=== PATIENT | female | born 1975 | race Caucasian/White ===

== ENCOUNTER 2019-08-20 09:33 | Observation (INO) ==
[2019-08-20] MEDS ORDERED: Aspirin 81 MG TAB.CHEW PO STA (09:58)
[2019-08-20 09:59] LABS: Basophils % 0.2 %; Eosinophils # 0.1 K/mcL (0.0-0.6); Eosinophils % 2.1 %; Hemoglobin 12.7 g/dL (11.5-15.4); Immature Granulocytes % 0.2 % (0-4); Lymphocytes % 23.2 %; Mean Corpuscular HGB Conc 33.4 g/dL (31.6-35.5); Mean Corpuscular Hemoglobin 31.1 pg (28.0-33.3); Mean Corpuscular Volume 92.9 fL (83.0-100.0); Mean Platelet Volume 9.3 fL (9.4-12.4); Monocytes # 0.3 K/mcL (0.0-1.3); Neutrophils # 2.9 K/mcL (1.6-8.9); Platelet Count 131 K/mcL (140-400); Red Blood Count 4.09 M/mcL (3.82-4.97); Red Cell Distribution Width 12.4 % (11.5-14.5); Segmented Neutrophils % 68.3 %; White Blood Count 4.3 K/mcL (4.3-11.1)
[2019-08-20] MEDS: Nitroglycerin 0.4 MG TAB.SUBL SL PRN ×3 (10:09→10:21)
[2019-08-20 10:21] LABS: BUN/Creatinine Ratio 33 (6-26); Blood Urea Nitrogen 20 mg/dL (6-20); Calcium 9.2 mg/dL (8.6-10.3); Carbon Dioxide 25 mEq/L (23-29); Chloride 109 mEq/L (98-107); Glucose 194 mg/dL (70-105); Osmolality,Calculated 290 (280-300); Potassium 3.8 mEq/L (3.5-5.1); Sodium 136 mEq/L (136-145); eGFR For African Americans > 60 (> 60); eGFR For Non-African Americans > 60 (> 60)
[2019-08-20 10:22] LABS: Troponin I < 0.03 ng/mL (< 0.04)
[2019-08-20 11:05] LABS: Alanine Aminotransferase 32 Units/L (7-52); Albumin 4.1 g/dL (3.5-5.7); Albumin/Globulin Ratio 1.5 (1.1-2.2); Alkaline Phosphatase 81 Units/L (34-104); Aspartate Amino Transferase 28 Units/L (13-39); Bilirubin,Direct 0.1 mg/dL (0.0-0.2); Bilirubin,Indirect 0.4 mg/dL (0.0-1.2); Bilirubin,Total 0.5 mg/dL (0.3-1.0); Globulin 2.7 g/dL (2.4-3.5); Total Protein 6.8 g/dL (6.4-8.9)
[2019-08-20] MEDS ORDERED: 0.9 % Sodium Chloride 1,000 ML IVC STA (11:22)
[2019-08-20] MEDS ORDERED: Prochlorperazine 10 MG/2 ML VIAL IVP STA (11:22)
[2019-08-20] MEDS ORDERED: Ketorolac 15 MG/ML VIAL IVP ONE (11:22)
[2019-08-20 11:34] LABS: Prothrombin Time 11.6 Seconds (9.4-12.1)
[2019-08-20 11:37] LABS: Activated Partial Thrombo Time 34.6 Seconds (26.0-36.0)
[2019-08-20] MEDS ORDERED: Naloxone 0.4 MG/ML INJ IVP PRN (13:03)
[2019-08-20] MEDS ORDERED: Acetaminophen 325 MG TABLET PO PRN (13:09)
[2019-08-20] MEDS ORDERED: Acetaminophen/Aspirin/Caffeine TABLET PO PRN (13:09)
[2019-08-20] MEDS ORDERED: Nitroglycerin 1 INCH/GM PACKET TP ONE (14:09)
[2019-08-20] MEDS ORDERED: SUMAtriptan succinate 50 MG TABLET PO PRN (14:21)
[2019-08-20] MEDS: ARIPiprazole 5 MG TABLET PO SCH (20:54)
[2019-08-20] MEDS: Ranolazine 500 MG TAB.ER.12H PO SCH (20:54)
[2019-08-21 02:16] LABS: Basophils % 0.3 %; Eosinophils # 0.1 K/mcL (0.0-0.6); Eosinophils % 2.6 %; Hematocrit 36.5 % (35.3-44.9); Hemoglobin 12.1 g/dL (11.5-15.4); Lymphocytes # 1.6 K/mcL (0.6-4.6); Lymphocytes % 42.4 %; Mean Corpuscular HGB Conc 33.2 g/dL (31.6-35.5); Mean Corpuscular Hemoglobin 30.7 pg (28.0-33.3); Mean Corpuscular Volume 92.6 fL (83.0-100.0); Mean Platelet Volume 9.7 fL (9.4-12.4); Monocytes # 0.4 K/mcL (0.0-1.3); Neutrophils # 1.8 K/mcL (1.6-8.9); Platelet Count 109 K/mcL (140-400); Red Blood Count 3.94 M/mcL (3.82-4.97); Red Cell Distribution Width 12.5 % (11.5-14.5); Segmented Neutrophils % 45.7 %; White Blood Count 3.9 K/mcL (4.3-11.1)
[2019-08-21 02:36] LABS: BUN/Creatinine Ratio 30 (6-26); Blood Urea Nitrogen 18 mg/dL (6-20); Carbon Dioxide 27 mEq/L (23-29); Chloride 112 mEq/L (98-107); Chol/HDL Ratio 3.8 (0-4.9); Cholesterol 130 mg/dL (< 200); Glucose 95 mg/dL (70-105); HDL Cholesterol 34 mg/dL (40-59); LDL Cholesterol,Calculated 64 mg/dL (0-99); Osmolality,Calculated 290 (280-300); Potassium 3.8 mEq/L (3.5-5.1); Sodium 139 mEq/L (136-145); Triglycerides 160 mg/dL (< 150); eGFR For African Americans > 60 (> 60); eGFR For Non-African Americans > 60 (> 60)
[2019-08-21 08:15] LABS: Estimated Average Glucose 128 mg/dl
[2019-08-21] MEDS: FLUoxetine 20 MG CAPSULE PO SCH (09:05)
[2019-08-21] MEDS: hydrOXYzine pamoate 25 MG CAPSULE PO SCH (09:05)
[2019-08-21] MEDS: Ranolazine 500 MG TAB.ER.12H PO SCH ×2 (09:05→21:08)
[2019-08-21] MEDS: Aspirin Enteric Coated 81 MG Tablet PO SCH (09:06)
[2019-08-21] MEDS: Isosorbide MONOnitrate (24 HR) 30 MG TAB.ER.24H PO SCH (09:06)
[2019-08-21] MEDS: Metoprolol XL (24 HR) Succ 25 MG TAB.ER.24H PO SCH (09:06)
[2019-08-21] MEDS: amLODIPine 5 MG TABLET PO SCH (09:06)
[2019-08-21] MEDS ORDERED: *HR* HYDROcodone/Acet 5/325 mg TABLET PO ONE (20:01)
[2019-08-21] MEDS: ARIPiprazole 5 MG TABLET PO SCH (21:08)
[2019-08-22] MEDS: Isosorbide MONOnitrate (24 HR) 30 MG TAB.ER.24H PO SCH (08:42)
[2019-08-22] MEDS: Aspirin Enteric Coated 81 MG Tablet PO SCH (08:42)
[2019-08-22] MEDS: Metoprolol XL (24 HR) Succ 25 MG TAB.ER.24H PO SCH (08:42)
[2019-08-22] MEDS: hydrOXYzine pamoate 25 MG CAPSULE PO SCH (08:42)
[2019-08-22] MEDS: FLUoxetine 20 MG CAPSULE PO SCH (08:42)
[2019-08-22] MEDS: amLODIPine 5 MG TABLET PO SCH (08:42)
[2019-08-22] MEDS: Ranolazine 500 MG TAB.ER.12H PO SCH ×2 (08:42→20:02)
[2019-08-22] MEDS ORDERED: *HR* Heparin 5,000 UNIT/ML VIAL IVP ONE (11:36)
[2019-08-22] MEDS ORDERED: *HR* Heparin 5,000 UNIT/ML VIAL IVP PRN ×4 (11:36→15:22)
[2019-08-22] MEDS ORDERED: Heparin 25,000 UNIT/250 ML D5W 25,000 UNIT/250 ML IV.SOLN IVC SCH ×2 (11:45→15:30)
[2019-08-22] MEDS ORDERED: Ketorolac 15 MG/ML VIAL IVP ONE (18:17)
[2019-08-22] MEDS: ARIPiprazole 5 MG TABLET PO SCH (20:02)
[2019-08-22 20:18] VITALS: BP 126/81
[2019-08-22] MEDS ORDERED: Isosorbide MONOnitrate (24 HR) 30 MG TAB.ER.24H PO SCH (21:00)
== END 2019-08-22 20:50 | disposition critical access hospital (66) ==
LOC: EMEROOARM 09:33 → 3BNU 09:33 → SUATTDRO 12:16 → 3BNU 12:43
PROVIDERS: ADMIT Internal Medicine; ATTEND Family Medicine

== ENCOUNTER 2022-07-16 10:02 | Inpatient (IN) ==
[2022-07-16 11:09] LABS: BUN/Creatinine Ratio 36 (6-26); Blood Urea Nitrogen 19 mg/dL (6-20); Calcium 7.9 mg/dL (8.6-10.3); Carbon Dioxide 24 mEq/L (23-29); Chloride 103 mEq/L (98-107); Glucose 226 mg/dL (70-105); Osmolality,Calculated 285 (280-300); Potassium 3.3 mEq/L (3.5-5.1); Sodium 133 mEq/L (136-145)
[2022-07-16 12:08] LABS: Immature Granulocytes % 0.7 % (0-4); Mean Corpuscular Hemoglobin 25.7 pg (28.0-33.3); Red Blood Count 1.91 M/mcL (3.82-4.97)
[2022-07-16 12:10] LABS: Basophils % 0.1 %; Eosinophils # 0.1 K/mcL (0.0-0.6); Eosinophils % 0.9 %; Hematocrit 16.9 % (35.3-44.9); Lymphocytes # 2.8 K/mcL (0.6-4.6); Lymphocytes % 26.7 %; Mean Corpuscular Volume 88.5 fL (83.0-100.0); Mean Platelet Volume 9.3 fL (9.4-12.4); Monocytes # 0.7 K/mcL (0.0-1.3); Neutrophils # 6.7 K/mcL (1.6-8.9); Nucleated Red Blood Cells 0.5 /100 WBC (0); Platelet Count 204 K/mcL (140-400); Red Cell Distribution Width 17.5 % (11.5-14.5); Segmented Neutrophils % 64.6 %; White Blood Count 10.4 K/mcL (4.3-11.1)
[2022-07-16 12:28] LABS: Hemoglobin 4.9 g/dL (11.5-15.4)
[2022-07-16] MEDS ORDERED: Iopamidol - 370 500 ML MLS IVP ONE (12:33)
[2022-07-16 12:58] LABS: Hypochromasia Present (Not Present); Platelet Estimate Normal (Normal)
[2022-07-16 13:08] LABS: Troponin I 0.03 ng/mL (< 0.04)
[2022-07-16 13:24] LABS: INR 1.2; Prothrombin Time 12.9 Seconds (9.4-12.1)
[2022-07-16] MEDS ORDERED: Pantoprazole 40 MG VIAL IVP ONE (15:02)
[2022-07-16] MEDS ORDERED: Metoclopramide 10 MG/2 ML VIAL IVP ONE (15:09)
[2022-07-16] MEDS ORDERED: *HR* Propofol 200 MG/20 ML VIAL IVP ONE (15:11)
[2022-07-16] MEDS ORDERED: Lidocaine -MPF 2% 5 ML VIAL ONE ×2 (15:13→15:23)
[2022-07-16] MEDS ORDERED: *HR* Succinylcholine 200 MG/10 ML VIAL IVP ONE (15:13)
[2022-07-16] MEDS ORDERED: Ondansetron 4 MG/2 ML VIAL ONE (15:15)
[2022-07-16] MEDS ORDERED: *HR* Rocuronium Bromide 50 MG/5 ML VIAL ONE (15:15)
[2022-07-16] MEDS ORDERED: Heparin 1,000 UNITS/500 mL 500 ML ONE (15:20)
[2022-07-16] MEDS ORDERED: *HR* Etomidate 40 MG/20 ML VIAL IVP ONE (15:26)
[2022-07-16] MEDS ORDERED: Ondansetron 4 MG/2 ML VIAL IVP PRN (15:40)
[2022-07-16] MEDS ORDERED: Naloxone 0.4 MG/ML INJ IVP PRN (15:45)
[2022-07-16] MEDS: *HR* FentaNYL (PF) 100 MCG/2 ML VIAL IVP PRN ×4 (16:20→16:44)
[2022-07-16] MEDS ORDERED: *HR* HYDROmorphone 2 MG/ML SYRINGE IVP ONE ×3 (16:50→17:10)
[2022-07-16] MEDS: *HR* HYDROmorphone (PF) 1 MG/ML SYRINGE ONE ×3 (16:50→17:10)
[2022-07-16] MEDS ORDERED: Ringers Solution, Lactated 1,000 ML ONE (17:41)
[2022-07-16] MEDS ORDERED: 0.9 % Sodium Chloride 1,000 ML IVC SCH (18:15)
[2022-07-16] MEDS: Pantoprazole 40 MG in 0.9 % Sodium Chloride Mini Bag 100 ML IVC SCH ×2 (18:21→22:49)
[2022-07-16] MEDS: Octreotide 400 MCG in 0.9 % Sodium Chloride 100 ML IVC SCH (18:22)
[2022-07-16] MEDS: cefTRIAXone 1,000 MG in 0.9 % Sodium Chloride Mini Bag 100 ML IVPB SCH (18:22)
[2022-07-16] MEDS: *HR* HYDROmorphone (PF) 1 MG/ML SYRINGE IVP PRN (18:39)
[2022-07-16 19:33] LABS: Albumin/Globulin Ratio 1.1 (1.1-2.2); Bilirubin,Direct 0.4 mg/dL (0.0-0.2); Bilirubin,Indirect 0.8 mg/dL (0.0-1.0); Bilirubin,Total 1.2 mg/dL (0.3-1.0); Globulin 2.8 g/dL (2.4-3.5); Total Protein 5.8 g/dL (6.4-8.9)
[2022-07-17] MEDS: Pantoprazole 40 MG in 0.9 % Sodium Chloride Mini Bag 100 ML IVC SCH ×4 (03:29→21:08)
[2022-07-17] MEDS: Octreotide 400 MCG in 0.9 % Sodium Chloride 100 ML IVC SCH ×3 (03:30→21:08)
[2022-07-17] MEDS: *HR* HYDROmorphone (PF) 1 MG/ML SYRINGE IVP PRN (03:39)
[2022-07-17 05:25] LABS: Hematocrit 21.7 % (35.3-44.9); Immature Granulocytes % 0.7 % (0-4); Lymphocytes # 0.9 K/mcL (0.6-4.6); Lymphocytes % 16.4 %; Mean Corpuscular Hemoglobin 26.7 pg (28.0-33.3); Mean Corpuscular Volume 89.3 fL (83.0-100.0); Mean Platelet Volume 9.1 fL (9.4-12.4); Monocytes # 0.2 K/mcL (0.0-1.3); Neutrophils # 4.4 K/mcL (1.6-8.9); Platelet Count 131 K/mcL (140-400); Red Blood Count 2.43 M/mcL (3.82-4.97); Red Cell Distribution Width 16.5 % (11.5-14.5); Segmented Neutrophils % 78.9 %
[2022-07-17 05:26] LABS: Hemoglobin 6.5 g/dL (11.5-15.4); White Blood Count 5.6 K/mcL (4.3-11.1)
[2022-07-17 05:41] LABS: Alanine Aminotransferase 59 Units/L (7-52); Albumin/Globulin Ratio 1.1 (1.1-2.2); Alkaline Phosphatase 191 Units/L (34-104); Aspartate Amino Transferase 113 Units/L (13-39); BUN/Creatinine Ratio 33 (6-26); Bilirubin,Total 1.1 mg/dL (0.3-1.0); Blood Urea Nitrogen 14 mg/dL (6-20); Calcium 7.5 mg/dL (8.6-10.3); Carbon Dioxide 22 mEq/L (23-29); Chloride 108 mEq/L (98-107); Globulin 2.8 g/dL (2.4-3.5); Glucose 256 mg/dL (70-105); Osmolality,Calculated 289 (280-300); Sodium 135 mEq/L (136-145); Total Protein 5.8 g/dL (6.4-8.9)
[2022-07-17] MEDS ORDERED: 0.9 % Sodium Chloride 250 ML IVC SCH (07:45)
[2022-07-17] MEDS: Lactulose Oral Soln 20 GM/30 ML UDC PO SCH ×2 (09:45→21:09)
[2022-07-17] MEDS ORDERED: *HR* Dextrose 50 % in Water (Syg) 50 ML SYRINGE IVP PRN (11:16)
[2022-07-17] MEDS ORDERED: D5% in Water 1,000 ML IVC PRN (11:16)
[2022-07-17] MEDS ORDERED: Dextrose Gel 15 GM/37.5 ML TUBE PO PRN ×2 (11:16)
[2022-07-17] MEDS: Insulin LISPRO 300 UNITS/3 ML VIAL SUBQ SCH ×4 (12:00→21:09)
[2022-07-17] MEDS ORDERED: *HR* OxyCODONE Immed Rel 5 MG TABLET PO PRN (13:58)
[2022-07-17 15:30] LABS: Basophils % 0.1 %; Eosinophils % 0.1 %; Hematocrit 23.1 % (35.3-44.9); Immature Granulocytes % 0.4 % (0-4); Lymphocytes # 1.7 K/mcL (0.6-4.6); Lymphocytes % 24.8 %; Mean Corpuscular HGB Conc 30.3 g/dL (31.6-35.5); Mean Corpuscular Volume 89.2 fL (83.0-100.0); Mean Platelet Volume 9.1 fL (9.4-12.4); Monocytes # 0.6 K/mcL (0.0-1.3); Monocytes % 8.1 %; Neutrophils # 4.7 K/mcL (1.6-8.9); Nucleated Red Blood Cells 0.4 /100 WBC (0); Platelet Count 144 K/mcL (140-400); Red Blood Count 2.59 M/mcL (3.82-4.97); Red Cell Distribution Width 16.2 % (11.5-14.5); Segmented Neutrophils % 66.5 %
[2022-07-17] MEDS: cefTRIAXone 1,000 MG in 0.9 % Sodium Chloride Mini Bag 100 ML IVPB SCH (15:41)
[2022-07-17] MEDS: FLUoxetine 20 MG CAPSULE PO SCH (21:08)
[2022-07-18] MEDS: Pantoprazole 40 MG in 0.9 % Sodium Chloride Mini Bag 100 ML IVC SCH ×4 (01:56→21:34)
[2022-07-18 02:47] LABS: Basophils % 0.2 %; Eosinophils % 0.5 %; Hematocrit 22.8 % (35.3-44.9); Hemoglobin 6.9 g/dL (11.5-15.4); Immature Granulocytes % 0.5 % (0-4); Lymphocytes % 32.6 %; Mean Corpuscular HGB Conc 30.3 g/dL (31.6-35.5); Mean Corpuscular Hemoglobin 28.4 pg (28.0-33.3); Mean Corpuscular Volume 93.8 fL (83.0-100.0); Mean Platelet Volume 9.8 fL (9.4-12.4); Monocytes # 0.5 K/mcL (0.0-1.3); Neutrophils # 3.6 K/mcL (1.6-8.9); Nucleated Red Blood Cells 0.5 /100 WBC (0); Platelet Count 120 K/mcL (140-400); Red Blood Count 2.43 M/mcL (3.82-4.97); Segmented Neutrophils % 58.2 %; White Blood Count 6.1 K/mcL (4.3-11.1)
[2022-07-18] MEDS: Octreotide 400 MCG in 0.9 % Sodium Chloride 100 ML IVC SCH ×2 (09:12→21:33)
[2022-07-18] MEDS: Insulin LISPRO 300 UNITS/3 ML VIAL SUBQ SCH ×4 (09:13→21:35)
[2022-07-18 09:26] LABS: BUN/Creatinine Ratio 30 (6-26); Blood Urea Nitrogen 17 mg/dL (6-20); Calcium 7.8 mg/dL (8.6-10.3); Carbon Dioxide 20 mEq/L (23-29); Chloride 110 mEq/L (98-107); Glucose 232 mg/dL (70-105); Osmolality,Calculated 293 (280-300); Sodium 137 mEq/L (136-145)
[2022-07-18] MEDS: Lactulose Oral Soln 20 GM/30 ML UDC PO SCH ×2 (10:06→21:33)
[2022-07-18] MEDS: cefTRIAXone 1,000 MG in 0.9 % Sodium Chloride Mini Bag 100 ML IVPB SCH (15:06)
[2022-07-18 15:10] LABS: Hematocrit 24.4 % (35.3-44.9); Hemoglobin 7.6 g/dL (11.5-15.4); Mean Corpuscular HGB Conc 31.1 g/dL (31.6-35.5); Mean Corpuscular Hemoglobin 27.5 pg (28.0-33.3); Mean Corpuscular Volume 88.4 fL (83.0-100.0); Mean Platelet Volume 9.8 fL (9.4-12.4); Platelet Count 110 K/mcL (140-400); Red Blood Count 2.76 M/mcL (3.82-4.97); Red Cell Distribution Width 16.3 % (11.5-14.5); White Blood Count 7.2 K/mcL (4.3-11.1)
[2022-07-18 15:39] LABS: BUN/Creatinine Ratio 30 (6-26); Blood Urea Nitrogen 17 mg/dL (6-20); Calcium 7.9 mg/dL (8.6-10.3); Carbon Dioxide 19 mEq/L (23-29); Chloride 111 mEq/L (98-107); Glucose 182 mg/dL (70-105); Osmolality,Calculated 292 (280-300); Sodium 138 mEq/L (136-145)
[2022-07-18] MEDS: FLUoxetine 20 MG CAPSULE PO SCH (21:33)
[2022-07-19 02:48] LABS: Basophils % 0.2 %; Eosinophils % 0.8 %; Hematocrit 24.4 % (35.3-44.9); Hemoglobin 7.5 g/dL (11.5-15.4); Immature Granulocytes % 0.6 % (0-4); Lymphocytes # 1.6 K/mcL (0.6-4.6); Lymphocytes % 32.2 %; Mean Corpuscular HGB Conc 30.7 g/dL (31.6-35.5); Mean Corpuscular Hemoglobin 27.8 pg (28.0-33.3); Mean Corpuscular Volume 90.4 fL (83.0-100.0); Mean Platelet Volume 9.6 fL (9.4-12.4); Monocytes # 0.4 K/mcL (0.0-1.3); Monocytes % 7.7 %; Neutrophils # 2.9 K/mcL (1.6-8.9); Platelet Count 101 K/mcL (140-400); Red Cell Distribution Width 16.1 % (11.5-14.5); Segmented Neutrophils % 58.5 %; White Blood Count 4.9 K/mcL (4.3-11.1)
[2022-07-19] MEDS: Pantoprazole 40 MG in 0.9 % Sodium Chloride Mini Bag 100 ML IVC SCH ×2 (03:07→08:39)
[2022-07-19] MEDS: Octreotide 400 MCG in 0.9 % Sodium Chloride 100 ML IVC SCH ×2 (06:48→15:24)
[2022-07-19] MEDS: Lactulose Oral Soln 20 GM/30 ML UDC PO SCH (08:27)
[2022-07-19] MEDS: Insulin LISPRO 300 UNITS/3 ML VIAL SUBQ SCH ×3 (08:27→17:03)
[2022-07-19 08:29] LABS: BUN/Creatinine Ratio 23 (6-26); Blood Urea Nitrogen 12 mg/dL (6-20); Calcium 7.7 mg/dL (8.6-10.3); Carbon Dioxide 22 mEq/L (23-29); Chloride 110 mEq/L (98-107); Glucose 211 mg/dL (70-105); Osmolality,Calculated 290 (280-300); Potassium 4.2 mEq/L (3.5-5.1); Sodium 137 mEq/L (136-145)
[2022-07-19] MEDS ORDERED: Pantoprazole 40 MG in 0.9 % Sodium Chloride 50 ML IVPB STA (11:06)
[2022-07-19] MEDS ORDERED: Pantoprazole 40 MG VIAL IVP ONE (11:15)
[2022-07-19 15:21] VITALS: BP 101/58; PULSE 85; TEMP 98.9; O2SAT 97
[2022-07-19] MEDS: cefTRIAXone 1,000 MG in 0.9 % Sodium Chloride Mini Bag 100 ML IVPB SCH (17:02)
== END 2022-07-19 18:13 | disposition home or self-care (01) | DRG 432 ==
LOC: 3ANU 10:02 → EMEROOARM 10:02 → SUATTDRO 15:13 → 3ANU 15:24
PROVIDERS: ADMIT Internal Medicine; ATTEND Internal Medicine

== ENCOUNTER 2022-07-29 09:40 | Inpatient (IN) ==
[2022-07-29] MEDS ORDERED: Iopamidol - 370 500 ML MLS IVP ONE (10:33)
[2022-07-29 10:41] LABS: Hematocrit 24.9 % (35.3-44.9); Hemoglobin 7.5 g/dL (11.5-15.4); Immature Granulocytes % 0.9 % (0-4); Lymphocytes # 0.7 K/mcL (0.6-4.6); Mean Corpuscular HGB Conc 30.1 g/dL (31.6-35.5); Mean Corpuscular Hemoglobin 26.7 pg (28.0-33.3); Mean Corpuscular Volume 88.6 fL (83.0-100.0); Mean Platelet Volume 10.4 fL (9.4-12.4); Monocytes # 0.3 K/mcL (0.0-1.3); Monocytes % 7.6 %; Neutrophils # 3.4 K/mcL (1.6-8.9); Nucleated Red Blood Cells 0.4 /100 WBC (0); Platelet Count 100 K/mcL (140-400); Red Blood Count 2.81 M/mcL (3.82-4.97); Red Cell Distribution Width 18.6 % (11.5-14.5); Segmented Neutrophils % 76.5 %; White Blood Count 4.5 K/mcL (4.3-11.1)
[2022-07-29] MEDS ORDERED: 0.9 % Sodium Chloride 500 ML IVC ONE (10:50)
[2022-07-29] MEDS ORDERED: Metoclopramide 10 MG/2 ML VIAL IVP ONE (10:50)
[2022-07-29 10:58] LABS: BUN/Creatinine Ratio 28 (6-26); Blood Urea Nitrogen 19 mg/dL (6-20); Calcium 8.9 mg/dL (8.6-10.3); Carbon Dioxide 24 mEq/L (23-29); Chloride 102 mEq/L (98-107); Glucose 286 mg/dL (70-105); Osmolality,Calculated 291 (280-300); Potassium 3.6 mEq/L (3.5-5.1); Sodium 134 mEq/L (136-145); Troponin I < 0.03 ng/mL (< 0.04)
[2022-07-29 11:53] LABS: Alanine Aminotransferase 35 Units/L (7-52); Albumin 3.3 g/dL (3.5-5.7); Albumin/Globulin Ratio 1.2 (1.1-2.2); Alkaline Phosphatase 205 Units/L (34-104); Aspartate Amino Transferase 83 Units/L (13-39); Bilirubin,Indirect 4.9 mg/dL (0.0-1.0); Bilirubin,Total 6.9 mg/dL (0.3-1.0); Globulin 2.7 g/dL (2.4-3.5); Lipase 21 Units/L (11-82)
[2022-07-29] MEDS ORDERED: Naloxone 0.4 MG/ML INJ IVP PRN (12:25)
[2022-07-29 12:29] LABS: Bilirubin,Urine Negative (Negative); Blood,Urine Large (Negative); Clarity,Urine Clear (Clear); Color,Urine Dark-Brown (Yellow); Glucose,Urine (UA) 300 mg/dL (Normal); Ketones,Urine Trace mg/dL (Negative); Leukocyte Esterase,Urine Negative (Negative); Nitrite,Urine Negative (Negative); PH,Urine 7.5 pH Units (5.0-8.0); Protein,Urine 200 mg/dL (Neg-Trace); Specific Gravity,Urine > 1.030 (1.010-1.025); Squamous Epithelial Cell,Urine Moderate per hpf (None-Few); Urobilinogen,Urine >=8.0 mg/dL (Normal); WBC,Urine 0-3 per hpf (0-3)
[2022-07-29] MEDS ORDERED: *HR* Dextrose 50 % in Water (Syg) 50 ML SYRINGE IVP PRN (15:00)
[2022-07-29] MEDS ORDERED: D5% in Water 1,000 ML IVC PRN (15:00)
[2022-07-29] MEDS ORDERED: Dextrose Gel 15 GM/37.5 ML TUBE PO PRN ×2 (15:00)
[2022-07-29] MEDS ORDERED: cefTRIAXone 2,000 MG in 0.9 % Sodium Chloride Mini Bag 100 ML IVPB SCH (16:00)
[2022-07-29] MEDS: Octreotide 400 MCG in 0.9 % Sodium Chloride 100 ML IVC SCH (17:22)
[2022-07-29] MEDS ORDERED: *HR* LORazepam 1 MG TABLET PO PRN (18:41)
[2022-07-29] MEDS ORDERED: Linaclotide [Linzess] 145 MCG Capsule PO PRN (18:41)
[2022-07-29 18:51] LABS: Immature Reticulocyte % 33.8 % (11.0-38.0); Retculocyte # 0.15 M/mcL (0.05-0.10); Reticulocyte % 5.2 % (1.6-2.8)
[2022-07-29] MEDS: Insulin LISPRO 300 UNITS/3 ML VIAL SUBQ SCH ×2 (19:18→21:35)
[2022-07-29 19:47] LABS: INR 1.3
[2022-07-29] MEDS: cefTRIAXone 2,000 MG in 0.9 % Sodium Chloride Mini Bag 100 ML IVPB SCH (20:41)
[2022-07-29] MEDS: FLUoxetine 20 MG CAPSULE PO SCH (20:46)
[2022-07-29] MEDS: Lactulose Oral Soln 20 GM/30 ML UDC PO SCH (20:46)
[2022-07-29] MEDS ORDERED: NON-FORMULARY MEDICATION 1 EACH EACH (Pantoprazole Sodium 40 MG Tablet.Dr) PO SCH (21:00)
[2022-07-29] MEDS: SUMAtriptan succinate 50 MG TABLET PO PRN (21:39)
[2022-07-29] MEDS: Pantoprazole 40 MG in 0.9 % Sodium Chloride Mini Bag 100 ML IVC SCH (21:40)
[2022-07-30] MEDS: Pantoprazole 40 MG in 0.9 % Sodium Chloride Mini Bag 100 ML IVC SCH ×5 (03:11→22:20)
[2022-07-30 04:14] LABS: Hematocrit 22.9 % (35.3-44.9); Hemoglobin 6.8 g/dL (11.5-15.4); Immature Granulocytes % 1.3 % (0-4); Immature Platelets 6.2 % (1.1-6.1); Lymphocytes # 1.1 K/mcL (0.6-4.6); Lymphocytes % 25.3 %; Mean Corpuscular HGB Conc 29.7 g/dL (31.6-35.5); Mean Corpuscular Hemoglobin 26.8 pg (28.0-33.3); Mean Corpuscular Volume 90.2 fL (83.0-100.0); Mean Platelet Volume 11.6 fL (9.4-12.4); Monocytes # 0.6 K/mcL (0.0-1.3); Monocytes % 13.4 %; Neutrophils # 2.7 K/mcL (1.6-8.9); Nucleated Red Blood Cells 1.1 /100 WBC (0); Red Blood Count 2.54 M/mcL (3.82-4.97); White Blood Count 4.5 K/mcL (4.3-11.1)
[2022-07-30 04:43] LABS: Alanine Aminotransferase 36 Units/L (7-52); Albumin 3.3 g/dL (3.5-5.7); Albumin/Globulin Ratio 1.1 (1.1-2.2); Alkaline Phosphatase 190 Units/L (34-104); Aspartate Amino Transferase 101 Units/L (13-39); BUN/Creatinine Ratio 28 (6-26); Bilirubin,Total 6.6 mg/dL (0.3-1.0); Blood Urea Nitrogen 21 mg/dL (6-20); Carbon Dioxide 23 mEq/L (23-29); Chloride 104 mEq/L (98-107); Globulin 2.9 g/dL (2.4-3.5); Glucose 294 mg/dL (70-105); Osmolality,Calculated 296 (280-300); Potassium 3.6 mEq/L (3.5-5.1); Sodium 136 mEq/L (136-145); Total Protein 6.2 g/dL (6.4-8.9)
[2022-07-30] MEDS: Insulin LISPRO 300 UNITS/3 ML VIAL SUBQ SCH ×4 (04:59→22:24)
[2022-07-30 05:00] LABS: Platelet Count 88 K/mcL (140-400)
[2022-07-30 05:14] LABS: Anisocytosis 1+ (Not Present); Hypochromasia Present (Not Present); Platelet Estimate Decreased (Normal)
[2022-07-30] MEDS: Aspirin Enteric Coated 81 MG Tablet PO SCH (08:19)
[2022-07-30] MEDS: Furosemide 40 MG TABLET PO SCH (08:19)
[2022-07-30] MEDS: cefTRIAXone 2,000 MG in 0.9 % Sodium Chloride Mini Bag 100 ML IVPB SCH (08:20)
[2022-07-30] MEDS: TRETINOIN TP SCH (08:21)
[2022-07-30] MEDS: Lactulose Oral Soln 20 GM/30 ML UDC PO SCH ×3 (08:21→22:19)
[2022-07-30] MEDS: Isosorbide MONOnitrate (24 HR) 60 MG TAB.ER.24H PO SCH (08:23)
[2022-07-30 08:42] LABS: Hemoglobin 6.2 g/dL (11.5-15.4)
[2022-07-30] MEDS: Ondansetron 4 MG/2 ML VIAL IVP PRN ×2 (10:27→22:19)
[2022-07-30 10:29] LABS: Lactate Dehydrogenase 1402 Units/L (140-271)
[2022-07-30] MEDS: Octreotide 400 MCG in 0.9 % Sodium Chloride 100 ML IVC SCH ×2 (11:59→14:54)
[2022-07-30] MEDS: Ringers Solution, Lactated 1,000 ML IVC SCH (13:31)
[2022-07-30] MEDS: 0.9 % Sodium Chloride 1,000 ML IVC SCH (14:49)
[2022-07-30] MEDS: predniSONE 20 MG TABLET PO SCH (14:55)
[2022-07-30 17:02] LABS: Basophils % 0.2 %; Eosinophils % 0.2 %; Hematocrit 20.3 % (35.3-44.9); Hemoglobin 6.1 g/dL (11.5-15.4); Immature Granulocytes % 1.2 % (0-4); Lymphocytes # 1.2 K/mcL (0.6-4.6); Mean Corpuscular Hemoglobin 27.2 pg (28.0-33.3); Mean Corpuscular Volume 90.6 fL (83.0-100.0); Mean Platelet Volume 10.6 fL (9.4-12.4); Monocytes # 0.4 K/mcL (0.0-1.3); Monocytes % 8.8 %; Neutrophils # 2.5 K/mcL (1.6-8.9); Nucleated Red Blood Cells 2.7 /100 WBC (0); Platelet Count 86 K/mcL (140-400); Red Blood Count 2.24 M/mcL (3.82-4.97); Red Cell Distribution Width 21.7 % (11.5-14.5); Segmented Neutrophils % 60.6 %; White Blood Count 4.1 K/mcL (4.3-11.1)
[2022-07-30] MEDS: FLUoxetine 20 MG CAPSULE PO SCH (22:19)
[2022-07-31] MEDS: Octreotide 400 MCG in 0.9 % Sodium Chloride 100 ML IVC SCH ×2 (01:27→15:42)
[2022-07-31] MEDS: 0.9 % Sodium Chloride 1,000 ML IVC SCH ×3 (01:31→20:56)
[2022-07-31 03:25] LABS: Retculocyte # 0.19 M/mcL (0.05-0.10); Reticulocyte % 8.7 % (1.6-2.8)
[2022-07-31 03:27] LABS: Hematocrit 20.1 % (35.3-44.9); Immature Granulocytes % 1.5 % (0-4); Immature Platelets 5.3 % (1.1-6.1); Lymphocytes # 1.1 K/mcL (0.6-4.6); Lymphocytes % 28.5 %; Mean Corpuscular HGB Conc 28.4 g/dL (31.6-35.5); Mean Corpuscular Hemoglobin 26.3 pg (28.0-33.3); Mean Corpuscular Volume 92.6 fL (83.0-100.0); Mean Platelet Volume 10.6 fL (9.4-12.4); Monocytes # 0.3 K/mcL (0.0-1.3); Monocytes % 7.2 %; Nucleated Red Blood Cells 1.3 /100 WBC (0); Platelet Count 103 K/mcL (140-400); Red Blood Count 2.17 M/mcL (3.82-4.97); Red Cell Distribution Width 22.8 % (11.5-14.5); Segmented Neutrophils % 62.8 %; White Blood Count 3.9 K/mcL (4.3-11.1)
[2022-07-31 03:50] LABS: Neutrophils # 2.5 K/mcL (1.6-8.9)
[2022-07-31 03:52] LABS: Anisocytosis 3+ (Not Present); Hemoglobin 5.7 g/dL (11.5-15.4); Large Platelets Present (Not Present); Macrocytosis Present (Not Present)
[2022-07-31 03:53] LABS: Platelet Estimate Decreased (Normal)
[2022-07-31 04:08] LABS: Alanine Aminotransferase 31 Units/L (7-52); Albumin 2.9 g/dL (3.5-5.7); Alkaline Phosphatase 165 Units/L (34-104); Aspartate Amino Transferase 81 Units/L (13-39); BUN/Creatinine Ratio 46 (6-26); Bilirubin,Direct 1.5 mg/dL (0.0-0.2); Bilirubin,Indirect 1.8 mg/dL (0.0-1.0); Bilirubin,Total 3.3 mg/dL (0.3-1.0); Blood Urea Nitrogen 24 mg/dL (6-20); Calcium 8.2 mg/dL (8.6-10.3); Carbon Dioxide 22 mEq/L (23-29); Chloride 108 mEq/L (98-107); Globulin 2.8 g/dL (2.4-3.5); Glucose 308 mg/dL (70-105); Lactate Dehydrogenase 1381 Units/L (140-271); Osmolality,Calculated 304 (280-300); Potassium 3.7 mEq/L (3.5-5.1); Sodium 139 mEq/L (136-145); Total Protein 5.7 g/dL (6.4-8.9)
[2022-07-31] MEDS ORDERED: 0.9 % Sodium Chloride 500 ML ONE (04:58)
[2022-07-31] MEDS: predniSONE 20 MG TABLET PO SCH (09:41)
[2022-07-31] MEDS: Isosorbide MONOnitrate (24 HR) 60 MG TAB.ER.24H PO SCH (09:45)
[2022-07-31] MEDS: Aspirin Enteric Coated 81 MG Tablet PO SCH (09:46)
[2022-07-31] MEDS: Furosemide 40 MG TABLET PO SCH (09:46)
[2022-07-31] MEDS: Lactulose Oral Soln 20 GM/30 ML UDC PO SCH ×2 (09:46→20:56)
[2022-07-31] MEDS: Folic Acid 1 MG TABLET PO SCH (09:46)
[2022-07-31] MEDS: TRETINOIN TP SCH (09:48)
[2022-07-31] MEDS: Ringers Solution, Lactated 1,000 ML IVC SCH (09:50)
[2022-07-31] MEDS: Insulin LISPRO 300 UNITS/3 ML VIAL SUBQ SCH ×4 (10:02→20:56)
[2022-07-31 11:48] LABS: Hematocrit 27.6 % (35.3-44.9)
[2022-07-31 14:22] LABS: Hematocrit 23.8 % (35.3-44.9)
[2022-07-31] MEDS: Pantoprazole 40 MG in 0.9 % Sodium Chloride Mini Bag 100 ML IVC SCH ×3 (15:41→15:46)
[2022-07-31] MEDS: cefTRIAXone 2,000 MG in 0.9 % Sodium Chloride Mini Bag 100 ML IVPB SCH (15:45)
[2022-07-31] MEDS: Cyanocobalamin (B-12) 1,000 MCG TABLET PO SCH (17:05)
[2022-07-31] MEDS: FLUoxetine 20 MG CAPSULE PO SCH (20:55)
[2022-08-01 00:44] LABS: Hematocrit 16.5 % (35.3-44.9)
[2022-08-01 00:46] LABS: Hemoglobin 4.7 g/dL (11.5-15.4)
[2022-08-01 00:51] LABS: Albumin 2.7 g/dL (3.5-5.7); Bilirubin,Direct 0.9 mg/dL (0.0-0.2); Bilirubin,Indirect 1.4 mg/dL (0.0-1.0); Bilirubin,Total 2.3 mg/dL (0.3-1.0); Globulin 2.6 g/dL (2.4-3.5); Total Protein 5.3 g/dL (6.4-8.9)
[2022-08-01] MEDS ORDERED: 0.9 % Sodium Chloride 250 ML ONE (01:12)
[2022-08-01 06:20] LABS: Basophils % 0.2 %; Nucleated Red Blood Cells 2.5 /100 WBC (0)
[2022-08-01 06:22] LABS: Hematocrit 25.2 % (35.3-44.9); Hemoglobin 7.5 g/dL (11.5-15.4); Immature Granulocytes % 3.8 % (0-4); Immature Platelets 5.1 % (1.1-6.1); Immature Reticulocyte % 31.1 % (11.0-38.0); Mean Corpuscular HGB Conc 29.8 g/dL (31.6-35.5); Mean Corpuscular Hemoglobin 27.4 pg (28.0-33.3); Mean Platelet Volume 10.3 fL (9.4-12.4); Monocytes # 0.5 K/mcL (0.0-1.3); Monocytes % 5.3 %; Neutrophils # 6.5 K/mcL (1.6-8.9); Platelet Count 138 K/mcL (140-400); Red Blood Count 2.74 M/mcL (3.82-4.97); Red Cell Distribution Width 22.8 % (11.5-14.5); Retculocyte # 0.26 M/mcL (0.05-0.10); Reticulocyte % 9.4 % (1.6-2.8); Segmented Neutrophils % 66.7 %; White Blood Count 9.8 K/mcL (4.3-11.1)
[2022-08-01 06:27] LABS: Lymphocytes # 2.4 K/mcL (0.6-4.6)
[2022-08-01 06:28] LABS: Anisocytosis 2+ (Not Present); Platelet Estimate Slight Decrease (Normal)
[2022-08-01] MEDS: 0.9 % Sodium Chloride 1,000 ML IVC SCH ×2 (10:13→17:03)
[2022-08-01] MEDS: Lactulose Oral Soln 20 GM/30 ML UDC PO SCH ×2 (10:13→21:19)
[2022-08-01] MEDS: Insulin LISPRO 300 UNITS/3 ML VIAL SUBQ SCH ×4 (10:14→21:20)
[2022-08-01] MEDS: Furosemide 40 MG TABLET PO SCH (10:14)
[2022-08-01] MEDS: Aspirin Enteric Coated 81 MG Tablet PO SCH (10:14)
[2022-08-01] MEDS: predniSONE 20 MG TABLET PO SCH (10:14)
[2022-08-01] MEDS: Cyanocobalamin (B-12) 1,000 MCG TABLET PO SCH (10:14)
[2022-08-01] MEDS: TRETINOIN TP SCH (10:15)
[2022-08-01] MEDS: Isosorbide MONOnitrate (24 HR) 60 MG TAB.ER.24H PO SCH (10:15)
[2022-08-01] MEDS: Folic Acid 1 MG TABLET PO SCH (10:15)
[2022-08-01] MEDS: FLUoxetine 20 MG CAPSULE PO SCH (21:22)
[2022-08-02] MEDS: 0.9 % Sodium Chloride 1,000 ML IVC SCH (00:31)
[2022-08-02 06:30] LABS: Basophils % 0.2 %; Eosinophils % 0.2 %; Hematocrit 23.6 % (35.3-44.9); Hemoglobin 6.9 g/dL (11.5-15.4); Immature Granulocytes % 2.9 % (0-4); Immature Reticulocyte % 32.6 % (11.0-38.0); Lymphocytes % 29.3 %; Mean Corpuscular HGB Conc 29.2 g/dL (31.6-35.5); Mean Corpuscular Volume 92.2 fL (83.0-100.0); Mean Platelet Volume 10.2 fL (9.4-12.4); Monocytes # 0.4 K/mcL (0.0-1.3); Monocytes % 6.4 %; Neutrophils # 3.8 K/mcL (1.6-8.9); Nucleated Red Blood Cells 1.8 /100 WBC (0); Platelet Count 102 K/mcL (140-400); Red Blood Count 2.56 M/mcL (3.82-4.97); Retculocyte # 0.25 M/mcL (0.05-0.10); Reticulocyte % 9.9 % (1.6-2.8); White Blood Count 6.3 K/mcL (4.3-11.1)
[2022-08-02 06:34] LABS: Lymphocytes # 1.9 K/mcL (0.6-4.6)
[2022-08-02 06:52] LABS: Albumin/Globulin Ratio 1.2 (1.1-2.2); Bilirubin,Direct 0.7 mg/dL (0.0-0.2); Bilirubin,Indirect 1.4 mg/dL (0.0-1.0); Bilirubin,Total 2.1 mg/dL (0.3-1.0); Globulin 2.6 g/dL (2.4-3.5); Total Protein 5.6 g/dL (6.4-8.9)
[2022-08-02 06:53] LABS: Anisocytosis 2+ (Not Present); Hypochromasia Present (Not Present); Platelet Estimate Slight Decrease (Normal)
[2022-08-02] MEDS: Insulin LISPRO 300 UNITS/3 ML VIAL SUBQ SCH ×4 (08:39→20:00)
[2022-08-02] MEDS: Folic Acid 1 MG TABLET PO SCH (09:58)
[2022-08-02] MEDS: Aspirin Enteric Coated 81 MG Tablet PO SCH (09:58)
[2022-08-02] MEDS: Cyanocobalamin (B-12) 1,000 MCG TABLET PO SCH (09:59)
[2022-08-02] MEDS: predniSONE 20 MG TABLET PO SCH (09:59)
[2022-08-02] MEDS: Furosemide 40 MG TABLET PO SCH (10:00)
[2022-08-02] MEDS: Lactulose Oral Soln 20 GM/30 ML UDC PO SCH ×2 (10:00→19:59)
[2022-08-02] MEDS: Isosorbide MONOnitrate (24 HR) 60 MG TAB.ER.24H PO SCH (10:00)
[2022-08-02] MEDS: TRETINOIN TP SCH (10:01)
[2022-08-02] MEDS: SUMAtriptan succinate 50 MG TABLET PO PRN (13:05)
[2022-08-02 16:46] VITALS: O2SAT 98
[2022-08-02] MEDS: FLUoxetine 20 MG CAPSULE PO SCH (19:59)
[2022-08-03 00:27] VITALS: BP 108/57; PULSE 71; TEMP 97.8
[2022-08-03 03:31] LABS: Immature Reticulocyte % 30.6 % (11.0-38.0); Retculocyte # 0.28 M/mcL (0.05-0.10); Reticulocyte % 10.7 % (1.6-2.8)
[2022-08-03 03:43] LABS: Basophils % 0.2 %; Hematocrit 23.6 % (35.3-44.9); Hemoglobin 7.3 g/dL (11.5-15.4); Immature Granulocytes % 1.8 % (0-4); Immature Platelets 3.2 % (1.1-6.1); Lymphocytes # 1.3 K/mcL (0.6-4.6); Lymphocytes % 26.4 %; Mean Corpuscular HGB Conc 30.9 g/dL (31.6-35.5); Mean Corpuscular Hemoglobin 28.1 pg (28.0-33.3); Mean Corpuscular Volume 90.8 fL (83.0-100.0); Monocytes # 0.3 K/mcL (0.0-1.3); Monocytes % 6.6 %; Neutrophils # 3.2 K/mcL (1.6-8.9); Nucleated Red Blood Cells 1.6 /100 WBC (0); Red Cell Distribution Width 24.8 % (11.5-14.5); White Blood Count 4.9 K/mcL (4.3-11.1)
[2022-08-03 03:47] LABS: Platelet Count 78 K/mcL (140-400)
[2022-08-03 03:48] LABS: Albumin/Globulin Ratio 1.1 (1.1-2.2); Bilirubin,Direct 0.6 mg/dL (0.0-0.2); Bilirubin,Indirect 1.1 mg/dL (0.0-1.0); Bilirubin,Total 1.7 mg/dL (0.3-1.0); Globulin 2.7 g/dL (2.4-3.5); Total Protein 5.7 g/dL (6.4-8.9)
[2022-08-03] MEDS: Furosemide 40 MG TABLET PO SCH (08:05)
[2022-08-03] MEDS: Isosorbide MONOnitrate (24 HR) 60 MG TAB.ER.24H PO SCH (08:05)
[2022-08-03] MEDS: Aspirin Enteric Coated 81 MG Tablet PO SCH (08:05)
[2022-08-03] MEDS: Folic Acid 1 MG TABLET PO SCH (08:05)
[2022-08-03] MEDS: TRETINOIN TP SCH (08:06)
[2022-08-03] MEDS: predniSONE 20 MG TABLET PO SCH (08:06)
[2022-08-03] MEDS: Cyanocobalamin (B-12) 1,000 MCG TABLET PO SCH (08:06)
[2022-08-03] MEDS: Lactulose Oral Soln 20 GM/30 ML UDC PO SCH (08:06)
[2022-08-03] MEDS: Insulin LISPRO 300 UNITS/3 ML VIAL SUBQ SCH (08:06)
== END 2022-08-03 11:52 | disposition home or self-care (01) | DRG 812 ==
LOC: 3NENU 09:40 → EMEROOARM 09:40 → SUATTDRO 15:12 → 3NENU 17:48
PROVIDERS: ADMIT Internal Medicine; ATTEND Family Medicine